=== PATIENT | female | born 1975 | race Caucasian/White ===

== ENCOUNTER 2019-05-14 10:07 | Emergency (ER) | payer OTHER ==
[~2019-05-14] VITALS: Ht 167.6 cm; Wt 74.8 kg
== END 2019-05-14 13:15 | disposition home or self-care (01) ==
LOC: ER 10:07
DX: J03.80 Acute tonsillitis due to other specified organisms (principal); J31.2 Chronic pharyngitis

== ENCOUNTER → 2021-05-30 09:00 | Outpatient (CLI) | payer OTHER | END | disposition home or self-care (01) | LOC: PPH VACUNA 09:00 | PROVIDERS: ATTEND Emergency Medicine Pediatric Emergency Medicine | DX: Z23 Encounter for immunization (principal) ==